=== PATIENT | female | born 1990 | race Hispanic/Latino ===

== ENCOUNTER 2018-04-12 21:38 | Emergency (ER) | payer OTHER ==
--- NOTE | 2018-04-12 21:45 | ED PDOC ---
Syncope/Near Syncope/Dizziness Time Seen by Provider: 04/12/18 21:45 Chief Complaint (Nursing): Syncope Chief Complaint (Provider): syncope History Per: Patient, Other (friend) History/Exam Limitations: no limitations Onset/Duration Of Symptoms: Sudden Onset Current Symptoms Are (Timing): Better Activity At Onset Of Symptoms: Sitting Associated Symptoms Preceding Syncopal Episode: No Predromal Symptoms (Sudden Onset) Seizure Or Post-ictal Symptoms: None Possible Causative Factor(s): Recent Alcohol, Decreased PO Intake Fall Associated With With Symptoms: Yes Severity: Mild Additional Complaint(s): Pt presents to the ED via EMS after passing out in a restaurant earlier this evening without warning. Pt acknowledges that she drank a beer, two vodka tonics and an oyster shooter and had not begun eatting at the time of the episode. Her friend, who was present, indicates that the patient said twice that she "did not feel well" and then fell over in her chair, mildly striking her head on the table. The patient suffered LOC for approximately two minutes. Pt denies , does not appear inebrieted, denies history of syncope, dizziness or seizure as well as fever, body aches, recent illness, sick contacts , NVD. Pt acknowledges only having smoked marijuania and having erratic menstural cycles notwithstanding being on OCP. Pt is also taking 20mg celexa QD , 0.5mg klonipin QD and levothyroxine. Past Medical History Reviewed: Historical Data, Nursing Documentation, Vital Signs - Family History Family History: States: Unknown Family Hx - Allergies Allergies/Adverse Reactions: Allergies Allergy/AdvReac Type Severity Reaction Status Date / Time No Known Allergies Allergy Verified 04/12/18 21:39 Review of Systems ROS Statement: Except As Marked, All Systems Reviewed And Found Negative Constitutional: Negative for: Fever, Chills, Sweats Neurological: Positive for: Headache. Negative for: Confusion, Seizures Physical Exam - Reviewed Nursing Documentation Reviewed: Yes Vital Signs Reviewed: Yes - Physical Exam Appears: Positive for: Well, Non-toxic, No Acute Distress Head Exam: Positive for: ATRAUMATIC, NORMAL INSPECTION, NORMOCEPHALIC Skin: Positive for: Normal Color, Warm, Dry Eye Exam: Positive for: Normal appearance, EOMI, PERRL. Negative for: Nystagmus , Periorbital swelling, Periorbital tenderness, Conjunctival injection, Scleral icterus ENT: Positive for: Pharynx Is (erythematous with enlarged tonsils; there is no tonsilar exudate and uvula is non-edematous and midline), Pharyngeal Erythema, Tonsillar Swelling. Negative for: Tonsillar Exudate Neck: Positive for: Normal, Painless ROM, Supple. Negative for: Decreased ROM Cardiovascular/Chest: Positive for: Regular Rate, Rhythm. Negative for: Edema, Gallop, Murmur, Bradycardia, Tachycardia, Friction Rub Respiratory: Positive for: Normal Breath Sounds. 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 Discussed with pt that one or all of these could have caused her to pass out; pt advised to maintain proper diet and follow up with PMD on Saturday referral to neuro at pt request Disposition - Clinical Impression Clinical Impression: Syncope - Patient ED Disposition Is Patient to be Admitted: No Doctor Will See Patient In The: Office Counseled Patient/Family Regarding: Studies Performed, Diagnosis, Need For Followup - Disposition Referrals: Kalyan Calloway MD [Staff Provider] - Disposition: Routine/Home Disposition Time: 01:01 Condition: STABLE Instructions: Syncope (Fainting), Syncope (Fainting) (DC) Forms: [employer] ([place]ian)
[2018-04-12 22:20] VITALS: O2SAT 100
[2018-04-12 22:39] LABS: BASO % 0.9 % (0.0-2.0); EOS # 0.1 K/uL (0.0-0.7); EOS % 1.3 % (0.0-4.0); HEMOGLOBIN 13.9 g/dL (12.0-16.0); LYMPH # 2.1 K/uL (1.0-4.3); MEAN CELL VOLUME 87.6 fl (81.0-99.0); MEAN CORPUSCULAR HEMOGLOBIN 29.7 pg (27.0-31.0); MEAN CORPUSCULAR HGB CONC 33.8 g/dL (33.0-37.0); MEAN PLATELET VOLUME 8.7 fl (7.2-11.7); MONO # 0.3 K/uL (0.0-0.8); MONO % 5.7 % (0.0-10.0); NEUT # 2.8 K/uL (1.8-7.0); NEUT % 53.1 % (50.0-75.0); NRBC % 0.1 % (0.0-0.0); RBC 4.7 Mil/uL (3.80-5.20); RED CELL DISTRIBUTION WIDTH 12.2 % (11.5-14.5); WHITE BLOOD COUNT 5.3 K/uL (4.8-10.8)
[2018-04-12 22:50] LABS: ALB/GLOB RATIO 1.2 (1.0-2.1); ALBUMIN 3.8 g/dL (3.5-5.0); ALT/SGPT 28 U/L (9-52); AST/SGOT 19 U/L (14-36); BLOOD UREA NITROGEN 13 mg/dl (7-17); CALCIUM 9.5 mg/dL (8.4-10.2); GFR AFRICAN-AMERICAN > 60; GFR NON-AFRICAN AMERICAN > 60
[2018-04-12 23:11] LABS: T4 18.1 ug/dl (5.5-11.0)
[2018-04-12 23:25] LABS: T3 1.17 nmol/L (1.49-2.60)
[2018-04-12 23:30] LABS: SQUAMOUS EPITHIAL 2 /hpf (0-5); URINE BACTERIA RARE (<OCC); URINE BILIRUBIN NEGATIVE (NEGATIVE); URINE BLOOD NEGATIVE (NEGATIVE); URINE CLARITY SLIGHTY-CLOUDY (Clear); URINE COLOR YELLOW (YELLOW); URINE GLUCOSE (UA) NEG (Normal); URINE LEUKOCYTE ESTERASE TRACE Leu/uL (Negative); URINE PROTEIN NEGATIVE (NEGATIVE); URINE UROBILINOGEN 0.2-1.0 mg/dL (0.2-1.0)
[2018-04-12 23:43] LABS: BARBITURATES, UR NEGATIVE (NEGATIVE); BENZODIAZEPINES, UR NEGATIVE (NEGATIVE); OPIATES, UR NEGATIVE (NEGATIVE); PHENCYCLIDINE, UR NEGATIVE (NEGATIVE)
[2018-04-12] MEDS: Sodium Chloride 0.9% 1,000 ML IV SCH (23:57)
--- NOTE | 2018-04-13 00:06 | CT ---
EXAM: CT Head Without Intravenous Contrast CLINICAL HISTORY: 28 years old, female; Injury or trauma; Fall; Initial encounter; Laceration; With loss of consciousness; Loss of consciousness 1 hr. To 5hrs. 59 min. ; Without residual foreign body; Head, generalized; Injury date: Today; Patient HX: Syncope/ falling TECHNIQUE: Axial computed tomography images of the head/brain without intravenous contrast. All CT scans at this facility use one or more dose reduction techniques, viz.: automated exposure control; ma/kV adjustment per patient size (including targeted exams where dose is matched to indication; i.e. head); or iterative reconstruction technique. Coronal and sagittal reformatted images were created and reviewed. COMPARISON: No relevant prior studies available. FINDINGS: Brain: No intracranial hemorrhage. 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 No edema. Ventricles: No hydrocephalus. Bones/joints: No acute fracture. Soft tissues: Unremarkable. Sinuses: No acute sinusitis. Mastoid air cells: No mastoid effusion. Orbits: Unremarkable as visualized. IMPRESSION: 1. No intracranial hemorrhage. 2. Incidental/non-acute findings are described above.
[2018-04-13] MEDS: Sodium Chloride 0.9% 1,000 ML IV SCH ×4 (00:12→00:49)
[2018-04-13 01:20] VITALS: BP 122/61; PULSE 73; RESP 13; TEMP 98.3
--- NOTE | 2018-04-14 11:49 | CARD ---
APPROVED REPORT EKG Measurement Heart [id number] <Conclusion> Normal sinus rhythm Nonspecific T wave abnormality Abnormal ECG
== END 2018-04-13 01:08 | disposition home or self-care (01) ==
LOC: H.ER 21:38
DX: R55 Syncope and collapse (principal)
CPT/HCPCS: 70450; 80053; 80320; 80324; 80345; 80346; 80349; 80353; 80358; 80361; 81003; 81025; 82948; 83992; 84436; 84443; 84480; 84484; 85025; 93005; 99285; J7030